=== PATIENT | female | born 1990 | race Caucasian/White ===

== ENCOUNTER 2017-04-11 19:00 | Inpatient (IN) | payer OTHER ==
[~2017-04-11] VITALS: Ht 162.6 cm; Wt 54.4 kg
--- NOTE | ~2017-04-11 | HP ---
Unit #: [id number] #: [id number] Patient: AMY BAILEY [id number] [place] [address] [id number] MR#: [id number] NAME: AMY BAILEY ROOM: 79 Age: 26 Sex: F Admission Date: 04/11/2017 : 1990 Attending Physician: Jcarlos Alegre M.D. Admitting Physician: Jcarlos Alegre M.D. Primary Care Physician: Primary Care Physician No HISTORY AND PHYSICAL History and physical completed on 04/12/2017. HISTORY OF PRESENT ILLNESS Amy is a 26-year-old female, admitted on 04/11/2017 to [facility] for detox from alcohol and heroin. PAST MEDICAL HISTORY None. PAST SURGICAL HISTORY None. SOCIAL HISTORY She smokes half pack of cigarettes daily. She drinks a pint of alcohol daily, and reports daily use of heroin. She is currently single and living with her mother. FAMILY HISTORY Noncontributory. REVIEW OF SYSTEMS CONSTITUTIONAL: No fever or chills. HEENT: Denies any sore throat, ear pain or runny nose. CARDIOVASCULAR: Denies chest pain, irregular heart rhythm or palpitations. CHEST: Denies shortness of breath or cough. No hemoptysis. GASTROINTESTINAL: Denies nausea, vomiting, diarrhea or chronic constipation. ENDOCRINE: Denies history of increased thirst or urination. No recent significant weight loss or gain. GENITOURINARY: Denies dysuria, frequency, or hematuria. SKIN: Denies any rashes. HEMATOLOGIC: Denies history of increased bleeding or bruising. MUSCULOSKELETAL: Denies any hot, swollen joints. No generalized muscle pain. NEUROLOGIC: Denies problems with vision or speech. No frequent, severe headaches. No numbness, tingling or weakness in any extremities. Denies loss of bladder or bowel control. CURRENT MEDICATIONS None. ALLERGIES None. Unit #: [id number] #: [id number] Patient: AMY BAILEY PHYSICAL EXAMINATION GENERAL: Alert, oriented, and in no acute distress. VITAL SIGNS: Blood pressure 104/72, heart rate 85, temperature 97.6. HEIGHT: 5 feet 4 inches. WEIGHT: 128 pounds. SKIN: Warm and dry without rash or lesion. HEENT: Normocephalic. TMs not viewed. Oral and nasal passages clear. Conjunctivae clear. PERRLA. EOMs intact. NECK: Supple without lymphadenopathy or thyromegaly. HEART: Regular rate and rhythm without murmur. LUNGS: Clear. ABDOMEN: Soft, nontender. : Not done. EXTREMITIES: No evidence of cyanosis, clubbing or edema. Moves all without focal deficit. NEUROLOGICAL: Grossly within normal limits. Cranial Nerves: II: Visual camargo are intact. III, IV AND : Extraocular movements are intact. Pupils are equal, round and reactive to light. V: Facial sensation is grossly normal. VII: Facial movements and expression are normal. VIII: Auditory acuity grossly intact. IX, X: Uvula is midline. Phonation is normal. XI: Patient shrugs shoulders and turns head normally. XII: Tongue protrudes in the midline. Sensory and Motor Function: Sensory and motor sensation is grossly normal. Motor: moves all extremities well. Coordination: Gait is normal. Deep Tendon Reflexes: Intact. IMPRESSION Psychiatric admission. RECOMMENDATIONS Psychiatric, per psychiatrist. MEDICAL No contraindications to participating in facility's activities. MEDICAL PROGNOSIS Good. MEDICAL CONDITION Stable. Dictated by... Joanna Caban/leonard TD: 04/13/2017 05:40 JOB #: [id number] Unit #: [id number] #: [id number] Patient: AMY BAILEY HISTORY AND PHYSICAL Page 1 of 1 X CHEYANNE GRAY APRN X HISTORY AND PHYSICAL
--- NOTE | ~2017-04-11 | PN ---
Unit #: [id number] #: [id number] Patient: ELANA BAILEY [id number] [facility] [address] [place] [address] [id number] I MR#: [id number] NAME: ELANA BAILEY ROOM: [facility] Age: 26 Sex: F Admission Date: 04/11/2017 : 1990 Attending Physician: Jcarlos Alegre M.D. Admitting Physician: Jcarlos Alegre M.D. Primary Care Physician: Primary Care Physician Tiffanie SOLOMON NOTES DATE 04/14/2017 DISCUSSION Ms. Tomas is a 26-year-old white female with mood disorder and substance abuse who was seen today and chart was reviewed and case was discussed with the staff. She has been anxious, withdrawn and seclusive to herself. Meanwhile, she has been anxious, withdrawn and rather seclusive to herself. Meanwhile, she has been cooperative with treatment recommendations as she has been taking the medications and tolerating them fairly well with no reported side effects. MENTAL STATUS EXAMINATION Young white female who was casually dressed with fair personal hygiene, appears to be in no acute distress or discomfort. She was awake and alert on interaction with intact orientation. Her mood was anxious and depressed with congruent affect. Her speech was slow and goal-directed. She denies any suicidal or homicidal ideations. Her insight and judgement remains slightly impaired. TREATMENT PLAN 1. We will continue her on her current medications and treatment protocol. We will monitor her response and make further adjustments as needed. 2. We will continue to follow up. Dictated by... Kel Dunaway/sasha TD: 04/16/2017 04:59 JOB #: [id number] Unit #: [id number] #: [id number] Patient: ELANA BAILEY PROGRESS NOTES Page 1 of 1 X Jcarlos Alegre MD PROGRESS NOTE
--- NOTE | ~2017-04-11 | PN ---
Unit #: [id number] #: [id number] Patient: ELANA BAILEY [id number] [facility] [address] [place] [address] [id number] MR#: [id number] NAME: ELANA BAILEY ROOM: [facility] Age: 26 Sex: F Admission Date: 04/11/2017 : 1990 Attending Physician: Jcarlos Alegre M.D. Admitting Physician: Jcarlos Alegre M.D. Primary Care Physician: Primary Care Physician Tiffanie SOLOMON NOTES DATE OF SERVICE 04/13/2017 DISCUSSION Ms. Bailey is a 26-year-old white female who was seen today. Chart was reviewed and case was discussed with the staff. She has been anxious, withdrawn, and rather seclusive to herself. Meanwhile, she has been cooperative with the treatment recommendations and has been taking the medications and tolerating them fairly well with no reported side effects. MENTAL STATUS EXAMINATION Young white female who is casually dressed with fair personal hygiene, appears to be in no acute distress or discomfort. She was awake and alert on interaction with intact orientation. Her mood is anxious with congruent affect. She denies any suicidal or homicidal ideations and also denies any auditory or visual hallucinations. Her insight and judgment remain slightly impaired. TREATMENT PLAN 1. We will continue her on her current medications and treatment protocol. We will monitor her response to the medications and make further adjustments as needed. 2. We will continue to follow up. Dictated by... Kel Dunaway/arcadio TD: 04/14/2017 06:56 JOB #: [id number] Unit #: [id number] #: [id number] Patient: ELANA BAILEY PROGRESS NOTES Page 1 of 1 X Jcarlos Alegre MD PROGRESS NOTE
--- NOTE | ~2017-04-11 | PN ---
Unit #: [id number] #: [id number] Patient: ELANA BAILEY [id number] [facility] [address] [place] [address] [id number] I MR#: [id number] NAME: ELANA BAILEY ROOM: [facility] Age: 26 Sex: F Admission Date: 04/11/2017 : 1990 Attending Physician: Jcarlos Alegre M.D. Admitting Physician: Jcarlos Alegre M.D. Primary Care Physician: Primary Care Physician Tiffanie SOLOMON NOTES DATE 04/15/2017 DISCUSSION Ms. Tomas is a 26-year-old white female who was seen today and chart was reviewed and case was discussed with the staff. She has been anxious, withdrawn though has not shown any agitation, irritability or behavioral problems and still appears to be in some distress or discomfort and has been rather seclusive to herself. Meanwhile, she has been cooperative with treatment recommendations as she has been taking the medications and tolerating them fairly well with no reported side effects. MENTAL STATUS EXAMINATION Young white female who was casually dressed with fair personal hygiene, appears to be in no acute distress or discomfort. She was awake and alert with impaired attention and concentration. Her mood was anxious with congruent affect. She denies any suicidal or homicidal ideations. Also, denies any auditory or visual hallucinations. Her insight and judgement remains slightly impaired. TREATMENT PLAN 1. We will continue her on her current medications and treatment protocol. We will monitor her response to the medication and make further adjustments as needed. 2. We will continue to follow up. Dictated by... Kel Dunaway/sasha TD: 04/17/2017 01:00 JOB #: [id number] Unit #: [id number] #: [id number] Patient: ELANA BAILEY PROGRESS NOTES Page 1 of 1 X Jcarlos Alegre MD PROGRESS NOTE
--- NOTE | ~2017-04-11 | PA ---
Unit #: [id number] #: [id number] [facility] [id number] [facility] [address] [place] [address] [id number] I MR#: [id number] NAME: ELANA BAILEY ROOM: P179 Age: 26 Sex: F Admission Date: 04/11/2017 : 1990 Date of Assessment: 04/12/2017 Attending Physician: Jcarlos Alegre M.D. Admitting Physician: Jcralos Alegre M.D. Primary Care Physician: Primary Care Physician No PSYCHIATRIC ASSESSMENT DATE OF SERVICE 04/12/2017. IDENTIFYING DATA Ms. Bailey is a 26-year-old single white female, who is a resident of [place], [place], and is known to us from previous encounter and was self-referred to the hospital on a voluntary basis. CHIEF COMPLAINT "I want to get off heroin." HISTORY OF PRESENT ILLNESS Ms. Bailey is a 26-year-old white female with history of substance abuse and mood disorder, who brought herself back to the hospital stating that she wants to get off heroin and that she has been using IV heroin 3 to 4 g on a daily basis with the last use being on the midnight before coming to the hospital. Before she came in, she took several bars of Xanax and used methamphetamine as well and reports being depressed and the 04/22 will be 2-year that she lost her fiance and that she has been having significant withdrawal symptoms with depression, anxiety, irritability, restlessness, feelings of hopelessness and helplessness, but denies any suicidal ideations, and as such, recommendation for inpatient hospitalization for detox was made and the patient was transferred to us. SUBSTANCE ABUSE HISTORY The patient reports history of alcohol, cannabis, cocaine, opioids, benzodiazepines, and methamphetamine abuse, though currently, she reports that she has been using heroin up to 3 g IV on a daily basis and also has been using methamphetamine and Xanax on daily basis with the last use of all of those within the last 24 hours. PAST PSYCHIATRIC HISTORY The patient has had history of inpatient chemical dependency treatment in [place] as well as at [facility] and review of the medical records indicate currently she is not active in treatment program, is not seeing a psychiatrist, and is not taking any psychotropic medications. PAST MEDICAL HISTORY No acute or chronic medical illnesses. ALLERGIES No known medication allergies. Unit #: [id number] #: [id number] Patient: ELANA BAILEY PERSONAL AND SOCIAL HISTORY A 26-year-old white female, who reports that she is single, unemployed, and essentially homeless and has poor social support system. MENTAL STATUS EXAMINATION Young white female who was casually dressed with fair personal hygiene, appears to be in no acute distress or discomfort. She was awake and alert on interaction with intact orientation to time, place, and person. Her mood was anxious and depressed with a congruent affect. Her speech was slow and restricted in content. Her thought processes were disorganized with some looseness of associations. She denies any suicidal or homicidal ideations and also denies any auditory or visual hallucinations. Her insight and judgment remain significantly impaired. DIAGNOSTIC IMPRESSION Psychiatric: Opioid dependence, moderate and acute withdrawals; benzodiazepine dependence, moderate; methamphetamine dependence, moderate; opioid-induced mood disorder. Medical: None. Stressors: Moderate psychosocial stressors. TREATMENT PLAN 1. The patient has presented with history of substance abuse and mood disorder, and has been decompensating and will need inpatient hospitalization for detoxification, safety, and stabilization. We will start her on detox protocol. We will closely monitor for any worsening withdrawal symptoms. 2. Supportive therapy was provided to the patient. ESTIMATED LENGTH OF STAY 5 to 7 days. ABILITY TO HELP SELF Limited. WILLINGNESS TO HELP SELF The patient appears to be willing to help self. STRENGTHS 1. Communicative. 2. Cooperative. PROBLEMS 1. Chronic dysphoric symptoms. 2. Poor social support system. DISCHARGE CRITERIA This will be contingent upon the patient's ability to show resolution of her depression and anxiety and her ability to stay safe to herself, particularly after discharge from the hospital. Dictated by... Kel Dunaway/annabelle TD: 04/12/2017 07:44 Unit #: [id number] #: [id number] Patient: ELANA BAILEY JOB #: [id number] PSYCHIATRIC ASSESSMENT Page 1 of 1 X Jcarlos Alegre MD PSYCHIATRIC ASSESSMENT
--- NOTE | ~2017-04-11 | DS ---
Unit #: [id number] #: [id number] [facility]: [facility] [id number] [facility] [address] [place] [address] [id number] I MR#: [id number] NAME: ELANA BAILEY ROOM: P179 Age: 26 Sex: F Admission Date: 04/11/2017 : 1990 Discharge Date: 04/16/2017 Attending Physician: Jcarlos Alegre M.D. Primary Care Physician: Primary Care Physician No DISCHARGE SUMMARY IDENTIFYING DATA Ms. Bailey is a 26-year-old single white female, who is a resident of [place], [place], and is known to us from previous encounter, and was self-referred to the hospital on a voluntary basis. DISCHARGE DIAGNOSES Psychiatric: Opioid dependence, moderate, in acute withdrawals; benzodiazepine dependence, moderate; methamphetamine dependence, moderate; and opioid-induced mood disorder. Medical: None. Stressors: Moderate psychosocial stressors. HISTORY OF PRESENT ILLNESS Please see initial psychiatric evaluation for details. PAST PSYCHIATRIC HISTORY Please see initial psychiatric evaluation for details. PAST MEDICAL HISTORY Please see initial psychiatric evaluation for details. HOSPITAL COURSE The patient was admitted to the adult chemical dependency unit at [facility] and was oriented to the hospital environment. Routine p.r.n. medications were initiated, and she was started back on her home medications and medications were adjusted and she was closely monitored. She was seen to be anxious, withdrawn, and in distress and discomfort with a complicated detox; however, she was able to come out of the detox without any complications and was willing to continue treatment on an outpatient basis. She was denying any suicidal ideations, intent, or plan and was not seen to be a danger to self or anyone else, and as such, it was decided that she will be discharged home and will continue treatment on an outpatient basis. DISCHARGE MEDICATIONS None. DISCHARGE CONDITION Stable. PROGNOSIS Fair. Unit #: [id number] #: [id number] Patient: ELANA BAILEY Dictated by... Kel Dunaway/annabelle TD: 04/16/2017 19:20 JOB #: [id number] DISCHARGE SUMMARY Page 1 of 1 X Jcarlos Alegre MD DISCHARGE SUMMARY
[~2017-04-11 19:00] MED LIST: DOXYCYCLINE HY100 M3 PO; FLEXERIL10 MG PO; IBUPROFEN800 MG PO; NO MEDICATIONS; PYRIDIUM PO; VOLTAREN75 MG PO
[2017-04-12 09:43] LABS: BASOPHIL% 0.4 % (0-2.5); EOSINOPHIL# 0.1 X10e3 (0-0.7); EOSINOPHIL% 2.1 % (0.0-7.0); HEMATOCRIT 37.4 % (35.0-45.0); HEMOGLOBIN 12.4 gm/dL (12.0-16.0); LYMPHOCYTE# 2.4 X10e3 (1.0-3.5); LYMPHOCYTE% 35.3 % (17.0-45.0); MEAN CELL VOLUME 86.2 FL (83-96); MEAN CORPUSCULAR HEMOGLOBIN 28.6 PG (28-34); MEAN CORPUSCULAR HGB CONC 33.2 g/dL (30-36); MEAN PLATELET VOLUME 8.1 FL (6.5-11.5); MONOCYTE# 0.6 X10e3 (0-1.0); MONOCYTE% 8.3 % (3.0-12.0); NEUTROPHIL# 3.6 X10e3 (1.5-7.1); NEUTROPHIL% 53.9 % (40-75); PLATELET COUNT 333 X10e3 (140-420); RED BLOOD COUNT 4.34 X10e (3.90-5.30); RED CELL DISTRIBUTION WIDTH 12.8 % (11.0-15.5); WHITE BLOOD COUNT 6.7 X10e3 (4.0-10.5)
[2017-04-12 09:54] LABS: DIFF IND NO
[2017-04-12 10:17] LABS: ALBUMIN SERUM 4.1 g/dL (3.5-5.0); CALCIUM SERUM 9.4 mg/dL (8.4-10.2); CREATININE SERUM 0.5 mg/dL (0.6-1.4); GLOM FILT RATE Estimated 133.6 mL/min (>60); POTASSIUM 4.3 mmol/L (3.5-5.1); PROTEIN TOTAL SERUM 7.1 g/dL (6.0-8.3)
== END 2017-04-16 10:19 | DRG 897 ==
LOC: P1E 21:33
PROVIDERS: Psychiatry & Neurology Psychiatry
PROC: HZ2ZZZZ Detoxification Services for Substance Abuse Treatment (ICD-10-PCS; principal; 2017-04-11)
DX: F11.23 Opioid dependence with withdrawal (principal); F13.20 Sedative, hypnotic or anxiolytic dependence, uncomplicated; F15.20 Other stimulant dependence, uncomplicated; F11.24 Opioid dependence with opioid-induced mood disorder; F17.210 Nicotine dependence, cigarettes, uncomplicated; Z56.0 Unemployment, unspecified; Z59.0 Homelessness
CPT/HCPCS: 80053; 84703; 85025; 86592; J2550